=== PATIENT | female | born 1995 | race Caucasian/White ===

== ENCOUNTER 2021-01-09 19:52 | Emergency (ER) | payer OTHER ==
[~2021-01-09] VITALS: Ht 157.5 cm; Wt 61.2 kg
[2021-01-09 19:57] VITALS: BP 127/76
--- NOTE | 2021-01-09 20:13 | NUR ---
PT TAKEN TO BED 12 VIA W/C.
--- NOTE | 2021-01-09 20:15 | NUR ---
PT TAKEN TO XR VIA W/C.
--- NOTE | 2021-01-09 20:20 | NUR ---
PT RETURNED BACK FROM XR VIA W/C.
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
[2021-01-09] MEDS ORDERED: IBUP-2213 PO (21:04)
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
[2021-01-09 21:30] VITALS: BP 127/76
--- NOTE | 2021-01-09 21:30 | NUR ---
Patient discharged with v/s stable. Written and verbal after care instructions given and explained. Patient alert, oriented and verbalized understanding of instructions. Wheel Chair Assisted with to car. All questions addressed prior to discharge. ID band removed. Patient advised to follow up with PMD. Rx of IBUPROFEN given. Patient educated on indication of medication including possible reaction and side effects. Opportunity to ask questions provided and answered.
== END 2021-01-09 21:39 | disposition home or self-care (01) ==
LOC: MED 19:52
DX: S93.491A Sprain of other ligament of right ankle, initial encounter (principal); X50.9XXA Other and unspecified overexertion or strenuous movements or postures, initial encounter; Y93.89 Activity, other specified; Y92.89 Other specified places as the place of occurrence of the external cause; Y99.8 Other external cause status
CPT/HCPCS: 73610; 99283

== ENCOUNTER 2022-07-06 15:48 | Emergency (ER) | payer OTHER ==
[~2022-07-06] VITALS: Ht 157.5 cm; Wt 73.9 kg
[~2022-07-06 15:48] MED LIST: IBUP-2213 PO
[2022-07-06 15:57] VITALS: BP 133/72
--- NOTE | 2022-07-06 16:06 | NUR ---
PT AMBULATED TO BATHROOM
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
--- NOTE | 2022-07-06 16:45 | NUR ---
PT AMBULATED TO BED 2
[2022-07-06] MEDS ORDERED: BACITRACIN OINT 500 UNITS/GM PKT TP ONE (17:10)
[2022-07-06] MEDS ORDERED: KETOROLAC 30 MG/ML VIAL IM ONE (17:15)
[2022-07-06 17:58] VITALS: BP 123/71
--- NOTE | 2022-07-06 17:58 | NUR ---
Patient discharged with v/s stable. Written and verbal after care instructions given. Patient verbalized understanding. Ambulatory with steady gait. All questions addressed prior to discharge. Advised to follow up with PMD.
--- NOTE | 2022-07-06 18:00 | NUR ---
The patient's care was reviewed and supervised by Sagrario Garzon RN.
== END 2022-07-06 17:58 | disposition home or self-care (01) ==
LOC: MED 15:48
DX: S90.111A Contusion of right great toe without damage to nail, initial encounter (principal); W18.30XA Fall on same level, unspecified, initial encounter; Y93.89 Activity, other specified; Y92.89 Other specified places as the place of occurrence of the external cause; Y99.8 Other external cause status
CPT/HCPCS: 73660; 81025; 96372; 99283; J1885

== ENCOUNTER 2022-07-08 09:06 | Emergency (ER) | payer OTHER ==
[~2022-07-08] VITALS: Ht 157.5 cm; Wt 75.0 kg
[2022-07-08 09:39] VITALS: BP 109/78
--- NOTE | 2022-07-08 10:48 | NUR ---
BIB SELF FOR RECHECK. SEEN HERE FOR SUBUNGUAL HEMATOMA RIGHT BIG TOE 2 DAYS AGO. DENIES N/V/D; SKIN IS PINK/WARM/DRY; AAOX4 WITH EVEN AND STEADY GAIT; LUNGS CLEAR BL; HR EVEN AND REGULAR; PT DENIES ANY FEVER, CP, SOB, OR COUGH AT THIS TIME; PATIENT STATES PAIN OF 7/10 AT THIS TIME.
--- NOTE | 2022-07-08 11:35 | NUR ---
Patient discharged with v/s stable. Written and verbal after care instructions given and explained. Patient verbalized understanding. Ambulatory with steady gait. All questions addressed prior to discharge. Advised to follow up with PMD.
== END 2022-07-08 11:35 | disposition home or self-care (01) ==
LOC: MED 09:06
DX: S90.111A Contusion of right great toe without damage to nail, initial encounter (principal); Z79.899 Other long term (current) drug therapy; W20.8XXA Other cause of strike by thrown, projected or falling object, initial encounter; Y93.89 Activity, other specified; Y92.89 Other specified places as the place of occurrence of the external cause; Y99.8 Other external cause status
CPT/HCPCS: 73660; 99283

== ENCOUNTER 2023-01-18 08:38 | Emergency (ER) | payer OTHER ==
[~2023-01-18] VITALS: Ht 157.5 cm; Wt 73.9 kg
[2023-01-18 08:57] VITALS: BP 119/75
--- NOTE | 2023-01-18 09:00 | NUR ---
27/f walked in c/o luq abd pain onset this morning. vomiting or diarrhea. denies blood in stool. NKA PMH: DENIES
--- NOTE | 2023-01-18 09:17 | NUR ---
TO ER BED 11
[2023-01-18] MEDS ORDERED: ALUMINUM HYD/MAG/SIMETHICONE 30 ML UDC PO ONE (10:00)
[2023-01-18] MEDS ORDERED: FAMOTIDINE 20 MG TAB PO ONE (10:00)
[2023-01-18] MEDS ORDERED: FAMO-92 PO (10:37)
[2023-01-18] MEDS ORDERED: MAG-27 PO (10:37)
--- NOTE | 2023-01-18 10:46 | NUR ---
Patient discharged with v/s stable. Written and verbal after care instructions ABOUT GASTRITIS given and explained. Patient alert, oriented and verbalized understanding of instructions. Ambulatory with steady gait. All questions addressed prior to discharge. ID band removed. Patient advised to follow up with PMD. Rx of PEPCID AND MYLANTA given. Patient educated on indication of medication including possible reaction and side effects. Opportunity to ask questions provided and answered.
== END 2023-01-18 10:46 | disposition home or self-care (01) ==
LOC: MED 08:38
DX: K29.70 Gastritis, unspecified, without bleeding (principal); Z79.899 Other long term (current) drug therapy
CPT/HCPCS: 81025; 99283